=== PATIENT | male | born 2000 | race Caucasian/White ===

== ENCOUNTER 2023-02-05 22:16 | Emergency (ER) | payer OTHER ==
[~2023-02-05] VITALS: Ht 172.7 cm; Wt 82.6 kg
[2023-02-06] MEDS ORDERED: IBUPROFEN 600MG TAB PO STA (02:45)
[2023-02-06] MEDS ORDERED: IBUP-1114 PO (04:27)
[2023-02-06] MEDS ORDERED: ACET1TAB55 PO (04:27)
[2023-02-06] MEDS ORDERED: CHLO1.4S7 MT (04:27)
[2023-02-06] MEDS ORDERED: PX S0.65 NARES (04:27)
[2023-02-06 04:51] VITALS: BP 143/75
== END 2023-02-06 04:53 | disposition left against medical advice (07) ==
LOC: M ED 22:16
DX: B34.8 Other viral infections of unspecified site (principal); Z79.1 Long term (current) use of non-steroidal anti-inflammatories (NSAID); Z79.899 Other long term (current) drug therapy

== ENCOUNTER → 2023-04-24 | Outpatient (CLI) | payer OTHER ==
[~2023-04-24] MED LIST: ACET1TAB55 PO; CHLO1.4S7 MT; IBUP-1114 PO; PX S0.65 NARES
== END ==
LOC: M CARPUL 11:04
PROVIDERS: ATTEND Internal Medicine
DX: R06.09 Other forms of dyspnea (principal)